=== PATIENT | female | born 1995 | race Caucasian/White ===

== ENCOUNTER 2017-03-26 14:04 | Emergency (ER) | payer SELFPAY ==
[2017-03-26 14:08] VITALS: BP 130/81
[2017-03-26] MEDS ORDERED: ACETAMINOPHEN 325 MG TABLET PO ONE (14:23)
[2017-03-26] MEDS ORDERED: PROMETHAZINE HCL 25 MG TABLET PO ONE (14:23)
[2017-03-26] MEDS ORDERED: IBUPROFEN 600 MG TABLET PO ONE (14:23)
--- NOTE | 2017-03-26 14:27 | ER Document Report ---
ED Medical Screen (RME) - General Chief Complaint: Lower Abdominal Pain Stated Complaint: LOWER ABDOMINAL PAIN Time Seen by Provider: 03/26/17 14:23 Notes: Patient says that she has been experiencing lower abdominal pain for the past week. She went to the health department a couple of days ago and was told she has a UTI and prescribed metronidazole 500 mg twice a day, but no other treatment. Patient is here today because she says the pain has gotten much more severe. She has had this once before and was told it was due to constipation. Her last bowel movement was today. Denies any nausea or vomiting. Has not had any UTI symptoms. Denies any cough or cold or chest congestion. Denies any fever. No prior abdominal surgeries. On no regular medications. Her last menstrual cycle ended on the 12th. On no control. TRAVEL OUTSIDE OF THE [place] IN LAST 30 DAYS: No - Related Data Allergies/Adverse Reactions: No Known Allergies Allergy (Verified 03/26/17 14:05) Home Medications: Current Home Medications No Home Medications 03/26/17 [History] Past Medical History - Social History Chew tobacco use (# tins/day): No Frequency of alcohol use: Occasional Drug Abuse: Marijuana Renal/ Medical History: Denies: Hx Peritoneal Dialysis Physical Exam - Vital signs Vitals: Temp Pulse Resp BP Pulse Ox 97.7 F 62 20 130/81 H 100 03/26/17 14:08 03/26/17 14:08 03/26/17 14:08 03/26/17 14:08 03/26/17 14:08 Course - Vital Signs Vital signs: Temp Pulse Resp BP Pulse Ox 97.7 F 62 20 130/81 H 100 03/26/17 14:08 03/26/17 14:08 03/26/17 14:08 03/26/17 14:08 03/26/17 14:08
--- NOTE | 2017-03-26 15:00 | ER Document Report ---
ED GI/ - General Chief Complaint: Lower Abdominal Pain Stated Complaint: LOWER ABDOMINAL PAIN Time Seen by Provider: 03/26/17 14:23 Notes: The patient is a 21-year-old female who presents with worsening lower abdominal pain over the past 2 days. She was seen in the health department last week, diagnosed with an "infection" and treated with Flagyl. She said the pain initially improved, but has now worsened. She is also having nausea and vomited in the emergency room. She is having normal bowel movements. Pt having unprotected intercourse. Patient denies hematemesis, fevers, vaginal discharge, vaginal bleeding, headache, flank pain, rash, diarrhea, constipation or headache. TRAVEL OUTSIDE OF THE [place] IN LAST 30 DAYS: No - Related Data Allergies/Adverse Reactions: No Known Allergies Allergy (Verified 03/26/17 14:05) Past Medical History - General Information source: Patient - Social History Smoking Status: Never Smoker Chew tobacco use (# tins/day): No Frequency of alcohol use: Occasional Drug Abuse: Marijuana Family History: Reviewed & Not Pertinent Patient has suicidal ideation: No Patient has homicidal ideation: No Renal/ Medical History: Denies: Hx Peritoneal Dialysis Review of Systems - Review of Systems Notes: REVIEW OF SYSTEMS: CONSTITUTIONAL: -fevers, -chills EENT: -eye pain, -difficulty swallowing, -nasal congestion CARDIOVASCULAR:-chest pain, -syncope. RESPIRATORY: -cough, -SOB GASTROINTESTINAL: +lower abdominal pain, +nausea, +vomiting, -diarrhea GENITOURINARY: -dysuria, -hematuria MUSCULOSKELETAL: -back pain, -neck pain SKIN: -rash or skin lesions. HEMATOLOGIC: -easy bruising or bleeding. LYMPHATIC: -swollen, enlarged glands. NEUROLOGICAL: -altered mental status or loss of consciousness, -headache, - neurologic symptoms PSYCHIATRIC: -anxiety, -depression. ALL OTHER SYSTEMS REVIEWED AND NEGATIVE. Physical Exam - Vital signs Vitals: Temp Pulse Resp BP Pulse Ox 97.7 F 62 20 130/81 H 100 03/26/17 14:08 03/26/17 14:08 03/26/17 14:08 03/26/17 14:08 03/26/17 14:08 - Notes Notes: PHYSICAL EXAMINATION: GENERAL: Well-appearing, well-nourished and in no acute distress. HEAD: Atraumatic, normocephalic. EYES: Pupils equal round and reactive to light, extraocular movements intact, sclera anicteric, conjunctiva are normal. ENT: nares patent, oropharynx clear without exudates. Moist mucous membranes. NECK: Normal range of motion, supple without lymphadenopathy LUNGS: Breath sounds clear to auscultation bilaterally and equal. No wheezes rales or rhonchi. HEART: Regular rate and rhythm without murmurs ABDOMEN: Soft, mild tenderness over lower abdomen, normoactive bowel sounds. No guarding, no rebound. No masses appreciated. : No vaginal discharge. +CMT. Non-tender adnexa and no masses. Tenderness in RLQ and suprapubic region. EXTREMITIES: Normal range of motion, no pitting or edema. No cyanosis. NEUROLOGICAL: Cranial nerves grossly intact. Normal speech, normal gait. Normal sensory and motor exams. PSYCH: Normal mood, normal affect. SKIN: Warm, Dry, normal turgor, no rashes or lesions noted. Course - Re-evaluation Re-evalutation: Patient with nausea, vomiting, right lower quadrant abdominal pain and suprapubic pain is worsening over the past 2 days. Her pelvic exam does not show any adnexal tenderness. Her symptoms do not seem consistent with ovarian torsion at this time. She is positive for chlamydia, so we will treat her for PID. There is a concern for appendicitis with right lower quadrant tenderness, but CT abdomen pelvis with oral and IV contrast does not show any signs of appendicitis. Instructed her to follow-up with the health department and to use protection until her partners are treated. - Vital Signs Vital signs: Temp Pulse Resp BP Pulse Ox 97.7 F 62 20 130/81 H 100 03/26/17 14:08 03/26/17 14:08 03/26/17 14:08 03/26/17 14:08 03/26/17 14:08 - Laboratory Result Diagrams: 03/26/17 14:50 03/26/17 14:50 Laboratory results interpreted by me: 03/26/17 03/26/17 03/26/17 14:50 14:50 15:40 MCV 79 L MCH 26.4 L RDW 14.6 H Seg Neutrophils % 83.0 H Lymphocytes % 7.9 L Absolute Neutrophils 8.6 H Ur Leukocyte Esterase LARGE H Chlamydia DNA (PCR) DETECTED H - Diagnostic Test Radiology reviewed: Image reviewed, Reports reviewed Radiology results interpreted by me: DESHAUN US: Appendix not visualized. CT A/P: Normal Discharge - Discharge Clinical Impression: PID (pelvic inflammatory disease), Chlamydia infection Condition: Stable Disposition: HOME, SELF-CARE Additional Instructions: PELVIC PAIN: There are many causes of pain in the pelvic area. The cause could be the tubes, ovaries, uterus, intestines, appendix, pelvic muscles and connective tissue, or the urinary tract. The cause of your pelvic pain is not clear. However, it seems safe to treat you outside the hospital. If the pain sounds like a temporary problem, we sometimes wait to see if it goes away. Other patients may need additional tests, such as pelvic ultrasound or cultures. Conditions may change. Call us or come back for reexamination if any problems occur, such as: (1) Pain that becomes more severe, steady, or becomes concentrated in one specific area. Also, pain that is more severe with movement or coughing. (2) Vomiting that persists or becomes more frequent. (3) Blood in the vomitus, urine, or bowel movements. Blood in the stool may have a tarry or black appearance. (4) Shaking chills or fever greater than 100 degrees. (5) The abdomen becomes more distended or swollen. (6) Bowel movements cease. (7) Heavy vaginal bleeding. PELVIC INFLAMMATORY DISEASE: You have been diagnosed as having pelvic inflammatory disease (PID). This is an infection of the fallopian tubes and surrounding areas of the pelvis. Symptoms are usually pelvic pain and discharge. The infection can do permanent damage to the tubes and ovaries. It should be taken very seriously. Treatment is antibiotics, which may be given by vein or by injection if the infection seems serious. It's important that you receive all recommended medication. Condoms help prevent spread of this infection to others. Because this infection is spread sexually, it's important that your sexual partner be checked before resuming sexual relations. If a culture shows gonorrhea or chlamydia organisms, the law requires that this be reported to the health department. Call the doctor or return at once if you develop increasing fever, rash, severe pelvic pain, vaginal bleeding (other than your period), or problems with your bladder or bowels. ANTIBIOTIC THERAPY: You have been given an antibiotic prescription. It's important that you take all the medication, unless instructed otherwise by your physician. Failure to complete the entire course can result in relapse of your condition. Common side effects of antibiotics include nausea, intestinal cramping, or diarrhea. Women may develop vaginal yeast infections, and babies can get yeast (thrush) in the mouth following the use of antibiotics. Contact your physician if you develop significant side effects from this medication. Allergy to this antibiotic can result in hives, wheezing, faintness, or itching. If symptoms of allergy occur, stop the medication and call the doctor. CEPHALOSPORINS: An antibiotic of the cephalosporin class has been prescribed. This type of antibiotic covers a wide variety of infections, including those of the skin, lungs, middle ear, and urinary tract. This antibiotic is somewhat similar to the penicillin family. In rare cases , a person who is allergic to penicillin will also be allergic to this medication. If you have had a severe allergic reaction to penicillin, and have not taken this antibiotic since that time, notify your doctor. Antibiotics which cover many germs ("broad spectrum" antibiotics) are more likely to cause diarrhea or "yeast" infections. Women prone to vaginal yeast problems may suffer an attack after taking this antibiotic. In infants, oral thrush (white spots "stuck" on the cheek) or yeast diaper rash may result. See your doctor if these problems occur. Call the doctor at once if you develop hives, itching, shortness of breath , or lightheadedness. DOXYCYCLINE: Doxycycline (Vibramycin, Doryx) is an antibiotic of the tetracycline family. This type of drug is useful for infections of the respiratory tract and genital tract, and is sometimes used for intestinal infections. Unlike most tetracyclines, doxycycline can be taken with food. It is longer acting, and (usually) less prone to side effects than regular tetracycline. Tetracycline antibiotics can stain immature teeth and SHOULD NOT BE TAKEN BY CHILDREN, NURSING MOTHERS, OR WOMEN. Tetracyclines can make you more prone to sunburn. Abdominal cramping, nausea, and diarrhea are occasional side effects. Women may experience vaginal yeast infections. Call the doctor at once if you develop hives, itching, shortness of breath , or lightheadedness. FOLLOW-UP CARE: If you have been referred to a physician for follow-up care, call the physician s office for an appointment as you were instructed or within the next two days. If you experience worsening or a significant change in your symptoms, notify the physician immediately or return to the Emergency Department at any time for re-evaluation. Prescriptions: Doxycycline Hyclate 100 mg PO BID #28 capsule Referrals: [facility] [NO LOCAL MD] - Follow up as needed
[2017-03-26 15:13] LABS: ABSOLUTE LYMPHOCYTES (AUTO) 0.8 10^3/uL (0.5-4.7); ABSOLUTE MONOCYTES (AUTO) 0.9 10^3/uL (0.1-1.4); ABSOLUTE NEUT (AUTO) 8.6 10^3/uL (1.7-8.2); BASOPHILS % (AUTO) 0.4 % (0-2); EOSINOPHILS % (AUTO) 0.1 % (0-6); HEMATOCRIT 39.2 % (36.0-47.0); HGB HCT DIFFERENCE -0.2; LYMPHOCYTES % (AUTO) 7.9 % (13-45); MEAN CORPUSCULAR HEMOGLOBIN 26.4 pg (27.0-33.4); MEAN CORPUSCULAR HGB CONC 33.3 g/dL (32.0-36.0); MEAN CORPUSCULAR VOLUME 79 fl (80-97); MONOCYTES % (AUTO) 8.6 % (3-13); RED BLOOD COUNT 4.94 10^6/uL (3.72-5.28); RED CELL DISTRIBUTION WIDTH 14.6 % (11.5-14.0); WHITE BLOOD COUNT 10.4 10^3/uL (4.0-10.5)
[2017-03-26] MEDS ORDERED: ONDANSETRON 4 MG TAB.RAPDIS PO ONE (15:14)
[2017-03-26 15:16] LABS: AMORPHOUS SEDIMENT,URINE TRACE /HPF; APPEARANCE,URINE CLOUDY; BILIRUBIN,URINE NEGATIVE (NEGATIVE); GLUCOSE, URINE NEGATIVE (NEGATIVE); KETONES,URINE NEGATIVE (NEGATIVE); LEUKOCYTE ESTERASE,URINE LARGE (NEGATIVE); NITRITE,URINE NEGATIVE (NEGATIVE); PROTEIN,URINE NEGATIVE (NEGATIVE); URINE SPECIFIC GRAVITY 1.013; UROBILINOGEN,URINE NEGATIVE mg/dL (<2.0)
[2017-03-26 15:24] LABS: ALANINE AMINOTRANSFERASE 25 U/L (9-52); ALBUMIN 4.8 g/dL (3.5-5.0); ALKALINE PHOSPHATASE 80 U/L (38-126); ANION GAP 12 (5-19); ASPARTATE AMINO TRANSFERASE 28 U/L (14-36); BILIRUBIN,DIRECT 0.2 mg/dL (0.0-0.4); BILIRUBIN,TOTAL 0.5 mg/dL (0.2-1.3); BLOOD UREA NITROGEN 12 mg/dL (7-20); CALCIUM 10.1 mg/dL (8.4-10.2); CARBON DIOXIDE 26 mmol/L (22-30); CHLORIDE 103 mmol/L (98-107); CREATININE RESULT 0.66 mg/dL (0.52-1.25); GLUCOSE 99 mg/dL (75-110); LIPASE 126.6 U/L (23-300); POTASSIUM 4.2 mmol/L (3.6-5.0); SODIUM 141.3 mmol/L (137-145); TOTAL PROTEIN 7.8 g/dL (6.3-8.2)
--- NOTE | 2017-03-26 17:59 | RADIOLOGY REPORT (SQ) ---
EXAM DESCRIPTION: U/S ABDOMEN LIMITED W/O DOP COMPLETED DATE/TIME: 03/26/2017 5:45 pm REASON FOR STUDY: RLQ tenderness, N/V, appendicitis? COMPARISON: None. TECHNIQUE: Static and real time villaseñor scale imaging performed of the right lower quadrant with additi onal compression maneuvers. LIMITATIONS: None. FINDINGS: APPENDIX: Not visualized. BOWEL: Active peristalsis with fluid in the bowel. COMPRESSION MANEUVERS: No rebound pain with compression. OTHER: No other significant finding. IMPRESSION: APPENDIX NOT IDENTIFIED. ACTIVE PERISTALSIS. TECHNICAL DOCUMENTATION: JOB ID: [id number] [employer]- All Rights Reserved
[2017-03-26] MEDS ORDERED: CEFTRIAXONE INJ 250 MG VIAL IM ONE (19:23)
[2017-03-26] MEDS ORDERED: AZITHROMYCIN 1 GM SUSP PACKET PO ONE (19:23)
[2017-03-26] MEDS ORDERED: LIDOCAINE 1% INJ-PF (10 MG/ML) 30 ML SDV INFIL ONE (19:23)
--- NOTE | 2017-03-26 19:30 | RADIOLOGY REPORT (SQ) ---
EXAM DESCRIPTION: CT ABD/PELVIS WITH IV ORAL COMPLETED DATE/TIME: 03/26/2017 7:12 pm REASON FOR STUDY: RLQ pain COMPARISON: None. TECHNIQUE: CT scan of the abdomen and pelvis performed using helical scanning technique with dynamic intravenous contrast injection. No oral contrast. Images reviewed with lung, soft tissue, and bone windows. Reconstructed coronal and sagittal MPR images reviewed. Delayed images for evaluation of the urinary system also acquired. All images stored on PACS. All CT scanners at this facility use dose modulation, iterative reconstruction, and/or weight based d osing when appropriate to reduce radiation dose to as low as reasonably achievable (ALARA). [facility]: Dose Right [facility]: CareDose [facility]: Dose Right [facility]: Teradose 4D [facility]: WellRight CONTRAST TYPE AND DOSE: contrast/concentration: Isovue 370.00 mg/ml; Total Contrast Delivered: 50.0 ml; Total Saline Delivered: 61.0 ml RENAL FUNCTION: GFR > 60. RADIATION DOSE: CT Rad equipment meets quality standard of care and radiation dose reduction techniq ues were employed. CTDIvol: 4.8 mGy. DLP: 435 mGy-cm.. LIMITATIONS: None. FINDINGS: LOWER CHEST: No significant findings. No nodules or infiltrates. LIVER: Normal size. No masses. No dilated ducts. SPLEEN: Normal size. No focal lesions. PANCREAS: No masses. No significant calcifications. No adjacent inflammation or peripancreatic fluid collections. Pancreatic duct not dilated. GALLBLADDER: No identified stones by CT criteria. No inflammatory changes to suggest cholecystitis. ADRENAL GLANDS: No significant masses or asymmetry. RIGHT KIDNEY AND URETER: No solid masses. No significant calcifications. No hydronephrosis or hyd roureter. LEFT KIDNEY AND URETER: No solid masses. No significant calcifications. No hydronephrosis or hydr oureter. AORTA AND VESSELS: No aneurysm. No dissection. Renal arteries, SMA, celiac without stenosis. RETROPERITONEUM: No retroperitoneal adenopathy, hemorrhage or masses. BOWEL AND PERITONEAL CAVITY: No masses or inflammatory changes. No free fluid or peritoneal masses. APPENDIX: Normal. PELVIS: Small amount of free fluid. Normal urinary bladder. ABDOMINAL WALL: No masses. No hernias. BONES: No significant or acute findings. OTHER: No other significant finding. IMPRESSION: No acute findings in the abdomen or pelvis. TECHNICAL DOCUMENTATION: JOB ID: [id number] Quality ID # [id number]: Final reports with documentation of one or more dose reduction techniques (e.g., Au tomated exposure control, adjustment of the mA and/or kV according to patient size, use of iterative reconstruction technique) 2010 [employer]- All Rights Reserved
[2017-03-26] MEDS ORDERED: DOXYCYCLINE HYCLATE 100 MG TABLET PO ONE (19:55)
== END 2017-03-26 20:46 | disposition home or self-care (01) ==
LOC: ER 14:04
DX: A74.9 Chlamydial infection, unspecified (principal); N73.9 Female pelvic inflammatory disease, unspecified; R10.30 Lower abdominal pain, unspecified; R11.2 Nausea with vomiting, unspecified
CPT/HCPCS: 99284; 96372; 36415; 87210; 83690; 84703; 85025; 80053; 81001; 87491; 87591; 76705; 74177; S0119; J3490; J0696